=== PATIENT | female | born 1990 | race Caucasian/White ===

== ENCOUNTER 2020-01-13 19:54 | Emergency (ER) | payer OTHER | END 2020-01-13 20:27 | disposition home or self-care (01) | LOC: MADERS 19:54 → EDSEX 19:54 → MADERS 20:27 | DX: O99.613 Diseases of the digestive system complicating pregnancy, third trimester (principal); K08.89 Other specified disorders of teeth and supporting structures; Z3A.32 32 weeks gestation of pregnancy | CPT/HCPCS: 99282 ==